=== PATIENT | male | born 1955 | race Caucasian/White ===

== ENCOUNTER 2017-03-06 13:04 | Emergency (ER) | payer BC ==
[~2017-03-06] VITALS: Ht 167.6 cm; Wt 90.9 kg
[2017-03-06] MEDS ORDERED: NEXIUM 40MG40 MG PO (13:33)
[2017-03-06 14:57] VITALS: BP 150/86; PULSE 86; TEMP 98.6
== END 2017-03-06 14:57 | disposition home or self-care (01) ==
LOC: COL.ER 13:04
DX: M79.641 Pain in right hand (principal); G89.29 Other chronic pain